=== PATIENT | male | born 1955 | race Two or more races ===

== ENCOUNTER 2023-03-23 06:55 | Day surgery (SDC) | payer OTHER, MEDICAID ==
[~2023-03-23] VITALS: Ht 188 cm; Wt 90.7 kg
[~2023-03-23 06:55] MED LIST: APIX5TAB PO; ASCO1TAB27 PO; ATOR20TA50 PO; CARV25TA55 PO; CHOL50007 PO; CLON0.1T PO; COEN200C9 PO; DULA0.5I SC; FENO145T27 PO; FURO40TA4 PO; HYDR-5052 PO; LOSA100T58 PO; MENA1CAP PO; MULT-928 PO; POM PO; POM SC; VITA400T4 PO
[2023-03-23] MEDS: LIDOCAINE VISCOUS 2% 15ML UD PO ONE (08:19)
[2023-03-23] MEDS: MIDAZOLAM HCL 2MG/2ML 2ml VIAL (1mg/ml) IV ONE (08:20)
[2023-03-23] MEDS: fentaNYL CITRATE 100 MCG/2 ML VL IV ONE (08:20)
[2023-03-23 08:31] VITALS: BP 131/58; PULSE 63; RESP 14; O2SAT 96
[2023-03-23 08:45] VITALS: BP 120/55; PULSE 61; RESP 14; O2SAT 96
[2023-03-23 08:59] VITALS: BP 123/49; PULSE 59; RESP 13; O2SAT 96
[2023-03-23 09:14] VITALS: BP 128/55; PULSE 58; RESP 12; O2SAT 97
[2023-03-23 09:29] VITALS: BP 118/46; PULSE 67; RESP 12; O2SAT 93
== END 2023-03-23 09:44 | disposition home or self-care (01) ==
LOC: CATH 06:55
PROVIDERS: ATTEND Internal Medicine Cardiovascular Disease
DX: I08.3 Combined rheumatic disorders of mitral, aortic and tricuspid valves (principal); I13.0 Hypertensive heart and chronic kidney disease with heart failure and stage 1 through stage 4 chronic kidney disease, or unspecified chronic kidney disease; E11.22 Type 2 diabetes mellitus with diabetic chronic kidney disease; N18.9 Chronic kidney disease, unspecified; I50.9 Heart failure, unspecified; E78.5 Hyperlipidemia, unspecified; F17.210 Nicotine dependence, cigarettes, uncomplicated; Z85.820 Personal history of malignant melanoma of skin; Z86.73 Personal history of transient ischemic attack (TIA), and cerebral infarction without residual deficits; Z79.899 Other long term (current) drug therapy; Z98.890 Other specified postprocedural states
CPT/HCPCS: 93312; J2250; J3010; 99152